=== PATIENT | female | born 2000 | race Caucasian/White ===

== ENCOUNTER 2022-07-04 11:17 | Observation (INO) | payer OTHER ==
[2022-07-04] VITALS (9 sets, daily range): BP systolic 107–140; BP diastolic 55–77; PULSE 73–90; TEMP 98.4
[~2022-07-04] VITALS: Ht 175.3 cm; Wt 57.2 kg
[2022-07-04 11:59] LABS: COLLECTION METHOD CLEAN CATCH
[2022-07-04 12:02] LABS: HEMOGLOBIN 12.3 g/dl (12.5-16.0); MEAN CELL VOLUME 92 fl (80.0-100.0); MEAN CORPUSCULAR HEMOGLOBIN 32 pg (27-31); MEAN CORPUSCULAR HGB CONC 34 g/dl (33.0-37.0); MEAN PLATELET VOLUME 8.8 fl (7.4-10.4); PLATELET COUNT 201 K/mm3 (130-400); RED BLOOD COUNT 3.89 M/mm3 (4.10-5.30)
[2022-07-04 12:05] LABS: HEMATOCRIT 35.8 % (37.0-47.0)
[2022-07-04 12:22] LABS: ALBUMIN 3.7 gm/dL (3.5-5.0); BILIRUBIN,TOTAL 0.6 mg/dL (0.2-1.2); CALCIUM 8.7 mg/dL (8.4-10.2); CREATININE, serum 0.85 mg/dL (0.57-1.11); POTASSIUM 3.6 mmol/L (3.5-4.5); TOTAL PROTEIN 7.5 gm/dL (6.2-8.1)
[2022-07-04 12:36] LABS: URINE BACTERIA None Seen /hpf (NONE SEEN); URINE RBC 0-2 /hpf (0-2)
[2022-07-04 12:39] LABS: LYMPHOCYTE 38 % (20.0-51.0); NEUTROPHILS 52 % (42.0-75.2); PLATELET ESTIMATE NORMAL (NORMAL)
[2022-07-04 12:53] LABS: PH 6 (5-8); URINE APPEARANCE Hazy (CLEAR/HAZY); URINE BLOOD Negative (NEGATIVE); URINE COLOR Yellow (YELLOW); URINE GLUCOSE Negative (NEGATIVE); URINE KETONE Negative (NEGATIVE); URINE NITRATE Negative (NEGATIVE); URINE PROTEIN(semi-quant) Negative (NEGATIVE); URINE UROBILINOGEN Negative (NEGATIVE)
[2022-07-04] MEDS ORDERED: LAMICTAL 100MG100 MG PO (15:41)
[2022-07-04] MEDS ORDERED: LEXAPRO 10MG10 MG PO (15:41)
[2022-07-04] MEDS ORDERED: ANIMAL SHAPES +1 CTB PO (15:42)
[2022-07-04] MEDS ORDERED: PROBIOTIC DIGE1 EACH PO (15:42)
--- NOTE | 2022-07-04 16:12 | NUR ---
ASSESSMENTS COMPLETE, VSS, PT TO SURGERY PER BED WITH CHIP STRATTON. HCG URINE SENT TO LAB.
[2022-07-04] MEDS ORDERED: NORCO 325 MG-51 TAB PO (18:18)
[2022-07-04] MEDS ORDERED: MOTRIN 600600 MG/TAB PO (18:18)
--- NOTE | 2022-07-04 19:15 | NUR ---
PT BROUGHT TO ROOM BY PACU NURSE. FAMILY AT BEDSIDE. POST OP VS STABLE. ABD INCISIONS CDI. PT REPORTS HAVING MINIMAL PAIN. NO OTHER NEEDS AT THIS TIME. CALL LIGHT WITHIN REACH.
--- NOTE | 2022-07-04 21:00 | NUR ---
PT COMPLAINING OF SPASMS IN LEFT ABDOMINAL INCISIION. INCISIONS CDI. PT RATES PAIN A 06/05. PN MEDS GIVEN. VIRAL BLUM NOTIFIED AND PT IS GOING TO STAY OVERNIGHT TO MONITOR PAIN.
[2022-07-05 00:45] VITALS: BP 107/53; PULSE 89; TEMP 98.7
[2022-07-05 04:19] VITALS: BP 103/50; PULSE 83; TEMP 98.3
[2022-07-05 08:22] VITALS: BP 98/41; PULSE 78; TEMP 98.7
--- NOTE | 2022-07-05 08:38 | NUR ---
PT RESTING IN BED. C/O PAIN THROUGHOUT NOC SHIFT. BREAKFAST ORDERED. PT HAS DISCHARGE ORDERS AND CAN DISCHARGE AFTER BREAKFAST.
--- NOTE | 2022-07-05 10:30 | NUR ---
Initial visit; Patient had a good breakfast and offered Construction Project Manager a big smile along with telling her she could keep her in Construction Project Manager's prayers.
--- NOTE | 2022-07-05 10:32 | NUR ---
DISCHARGE INSTRUCTIONS REVIEWED WITH PT AND MOM. QUESTIONS SOLICITED AND ANSWERED. PT LEFT FLOOR WITH STAFF PER WHEEL CHAIR.
== END 2022-07-05 10:33 | disposition home or self-care (01) ==
LOC: COL.ER 11:17 → SURG 13:17
PROVIDERS: Emergency Medicine; ADMIT Surgery
DX: K35.80 Unspecified acute appendicitis (principal)
CPT/HCPCS: G0378; J1100; J1170; J1885; J2270; J2405; J2543; J2704; J3010; J7030; J7120; Q9967